=== PATIENT | female | born 1960 | race Caucasian/White ===

== ENCOUNTER → 2019-07-11 10:45 | Outpatient (CLI) | payer OTHER, SELFPAY ==
--- NOTE | ~2019-07-11 | MM_ITS ---
EXAMINATION: MM screening [facility] w [facility] HISTORY: Screening mammogram, family history of breast cancer in her mother. TECHNIQUE: Craniocaudal and mediolateral oblique 3-D tomosynthesis images were obtained and synthetic 2-D images were generated. CAD analysis was submitted and interpreted. COMPARISON: 05/08/2018, 04/23/2017, 04/15/2017 BREAST PARENCHYMAL COMPOSITION: There are scattered areas of fibroglandular density. FINDINGS: There is no evidence of suspicious mass, calcification, or architectural distortion to sugg est malignancy in either breast. There has been no suspicious interval change. IMPRESSION: 1. No mammographic evidence of malignancy. 2. Recommend routine screening mammography in one year. BI-RADS Category 1: Negative Reviewed, dictated and finalized at location A.
== END ==
PROVIDERS: PCP Obstetrics & Gynecology; Visit Provider Obstetrics & Gynecology
DX: Z12.31 Encounter for screening mammogram for malignant neoplasm of breast (principal)
CPT/HCPCS: 77063; 77067

== ENCOUNTER → 2020-11-15 16:50 | Outpatient (CLI) | payer OTHER, SELFPAY ==
--- NOTE | ~2020-11-15 | MM_ITS ---
EXAMINATION: MM screening [facility] w [facility] HISTORY: Screening mammogram, family history of breast cancer in her mother. TECHNIQUE: Craniocaudal and mediolateral oblique 3-D tomosynthesis images were obtained and synthetic 2-D images were generated. CAD analysis was submitted and interpreted. COMPARISON: 07/11/2019, 05/08/2018, 04/23/2017, 04/15/2017 BREAST PARENCHYMAL COMPOSITION: There are scattered areas of fibroglandular density. FINDINGS: Focal asymmetry in the upper right breast has an appearance similar to prior mammograms. Th ere is no evidence of suspicious mass, calcification, or architectural distortion to suggest malignan cy in either breast. There has been no suspicious interval change. IMPRESSION: 1. No mammographic evidence of malignancy. 2. Recommend routine screening mammography in one year. BI-RADS Category 2: Benign finding(s). Reviewed, dictated and finalized at location A.
== END ==
PROVIDERS: Visit Provider Obstetrics & Gynecology
DX: Z12.31 Encounter for screening mammogram for malignant neoplasm of breast (principal)
CPT/HCPCS: 77063; 77067

== ENCOUNTER → 2022-03-23 14:50 | Outpatient (CLI) | payer OTHER, SELFPAY ==
--- NOTE | ~2022-03-23 | MM_ITS ---
EXAMINATION: MM screening [facility] BI w galina HISTORY: Screening TECHNIQUE: Craniocaudal and mediolateral oblique 3-D tomosynthesis images were obtained and synthetic 2-D images were generated. CAD analysis was submitted and interpreted. COMPARISON: Comparison to multiple prior studies sequentially, with oldest reviewed study dated 03/06. BREAST PARENCHYMAL COMPOSITION: There are scattered areas of fibroglandular density. FINDINGS: There is no evidence of suspicious mass, calcification, or architectural distortion to sugg est malignancy in either breast. There has been no suspicious interval change. IMPRESSION: 1. No mammographic evidence of malignancy. 2. Recommend routine screening mammography in one year. BI-RADS Category 1: Negative Reviewed, dictated and finalized at location A. S RECRUITMENT SPECIALIST
== END ==
PROVIDERS: PCP Internal Medicine; Visit Provider Obstetrics & Gynecology
DX: Z12.31 Encounter for screening mammogram for malignant neoplasm of breast (principal)
CPT/HCPCS: 77063; 77067

== ENCOUNTER 2023-03-25 11:51 | Day surgery (SDC) | payer OTHER, SELFPAY ==
[2023-03-06 13:57] VITALS: BMI 30.2
--- NOTE | 2023-03-25 12:21 | WPDANESEPPF ---
Anes - Initial Pre Proc Eval Procedure: Operation Date: 03/25/23 13:30 Proposed Procedures p Screening Colonoscopy - Luis Dozier MD Date/Time: 03/25/23 12:21 Surgeon: Luis Dozier MD Pre Op Diagnosis: Z12.11 Screening for neoplasm of colon Patient Data Age: 62 Gender: F Height: 1.55 m Weight: 72.7 kg Allergies Allergy/AdvReac Type Severity Reaction Status Date / Time moxifloxacin Allergy Severe LIPS Verified 03/25/23 12:09 SWELLING amoxicillin Allergy Unknown Lips Verified 03/25/23 12:09 swelling doxycycline Allergy Unknown Lips Verified 03/25/23 12:09 swelling erythromycin base Allergy Unknown lips Verified 03/25/23 12:09 swelling Penicillins Allergy Unknown Anaphylaxis Verified 03/25/23 12:09 Home Medications Medication Instructions Recorded Confirmed Type hydrocortisone 2.5 % topical cream 1 applic RECTAL QHS PRN 02/11/23 03/25/23 Rx with perineal applicator hemorrhoids #30 grams (Proctosol HC) Patient hx anesthesia problems: none Family hx anesthesia problems: none Results Review: All pre-operative results and documents have been reviewed as part of the pre-operative evaluation. [facility] Past Medical History Medical History Cholecystectomy planned 2007 H/O fracture Hemorrhoids Hyperlipidemia Surgical History Surgical History H/O section 1992 H/O: hysterectomy 2001 Family History Family History Father Malignant neoplasm of prostate Family history of malignant neoplasm of bone Mother Family history of heart disease in male family member before age 55 FH: bariatric surgery Social History Social History Smoking status: Former smoker Smoking end date: 07/29/21 Alcohol intake: current Alcohol use details: very rarely Substance use: never Substance use type: does not use Anes - Eval Final PreProcedure Day of Procedure 03/25/23 12:21 Patient weight: obese Heart: regular rate and rhythm Lungs: clear to auscultation Airway: Mallampati scale class II Neurological: alert and oriented Last oral intake: >/= 8 hours ASA classification: II Emergent: no Anesthetic plan: proceed Anesthesia type and monitoring: general GIVS and standard monitoring Results Review: All pre-operative results and documents have been reviewed as part of the pre-operative evaluation. Informed Consent: The patient's anesthetic plan and its attendant risks and benefits were discussed with the patient/family/POA. Questions were solicited and answers provided to the satisfaction of the patient/family/POA.
[2023-03-25 12:25] VITALS: BP 131/78; PULSE 62; RESP 16; TEMP 36.8; O2SAT 100; BMI 31.2
--- NOTE | 2023-03-25 12:27 | PM.HPGS ---
History of Present Illness History of Present Illness Consent: Risks, benefits, and alternatives have been discussed and questions answered. Patient agrees to proceed with procedure. Chief complaint: Z12.11 Screening for neoplasm of colon Narrative: Cindi Lynn is a 62 year old female Presents for screening colonoscopy. Patient has current weight appetite and bowel is normal. Patient has had no bleeding. Family history is noncontributory. Previous exam 11 years ago was unremarkable. Review of Systems Review of Systems: Review of systems is noncontributory. [facility] Past Medical History Medical History Cholecystectomy planned 2007 H/O fracture Hemorrhoids Hyperlipidemia Surgical History Surgical History H/O section 1992 H/O: hysterectomy 2001 Family History Family History Father Malignant neoplasm of prostate Family history of malignant neoplasm of bone Mother Family history of heart disease in male family member before age 55 FH: bariatric surgery Social History Social History Smoking status: Former smoker Smoking end date: 07/29/21 Alcohol intake: current Alcohol use details: very rarely Substance use: never Substance use type: does not use Meds Home Medications and Allergies Home Medications Medication Instructions Recorded Confirmed Type hydrocortisone 2.5 % topical cream 1 applic RECTAL QHS PRN 02/11/23 03/25/23 Rx with perineal applicator hemorrhoids #30 grams (Proctosol HC) Allergies Allergy/AdvReac Type Severity Reaction Status Date / Time moxifloxacin Allergy Severe LIPS Verified 03/25/23 12:09 SWELLING amoxicillin Allergy Unknown Lips Verified 03/25/23 12:09 swelling doxycycline Allergy Unknown Lips Verified 03/25/23 12:09 swelling erythromycin base Allergy Unknown lips Verified 03/25/23 12:09 swelling Penicillins Allergy Unknown Anaphylaxis Verified 03/25/23 12:09 Vital Signs Vital Signs - 24 hr 03/25/23 12:25 Temperature 98.3 F Pulse Rate 62 Respiratory Rate 16 Blood Pressure 131/78 Pulse Oximetry 100 Oxygen Delivery Room Air Exam Narrative: Physical exam reveals patient to be alert. Signs stable. HEENT exam is unremarkable. Patient is anicteric. Lungs are clear to auscultation and percussion. Heart is without murmur or extra sounds. Abdomen bowel sounds are present soft nontender with no organomegaly. Digital external rectal exam is normal. Assessment and Plan Assessment and plan (1) Screening for colon cancer: Code(s): Z12.11 - Encounter for screening for malignant neoplasm of colon Status: Acute Assessment and Plan: Patient presents today for neoplasia screening colonoscopy.
[2023-03-25] MEDS: LACTATED RINGERS 1,000 ML 150 ML IV CONT (12:30)
[2023-03-25 12:51] VITALS: BP 96/62; PULSE 82; RESP 14; O2SAT 100
[2023-03-25 13:01] VITALS: BP 107/58; PULSE 71; RESP 14; O2SAT 100
--- NOTE | 2023-03-25 13:06 | WPDANESPN ---
Anes - Prog Note Post-Op Date/Time: 03/25/23 13:06 Cardiovascular status: normal Respiratory status: normal Airway patency: baseline Mental status: baseline Post-Op hydration status: normal Vital Signs: Last Vital Signs Temp 36.8 C 03/25/23 12:25 Pulse 71 03/25/23 13:01 Resp 14 03/25/23 13:01 BP 107/58 L 03/25/23 13:01 Pulse Ox 100 03/25/23 13:01 O2 Del Method Room Air 03/25/23 13:01 Pain Score (VAS): 0/10 I/O: Intake & Output 03/24/23 03/25/23 03/25/23 23:59 07:59 15:59 Intake Total 100 Balance 100 Patient Feedback: Patient satisfied with anesthetic care.
[2023-03-25 13:11] VITALS: BP 114/65; PULSE 61; RESP 16; O2SAT 99
== END 2023-03-25 13:25 | disposition home or self-care (01) ==
PROVIDERS: PCP Internal Medicine; Visit Provider Internal Medicine Gastroenterology
PROC: 0DJD8ZZ Inspection of Lower Intestinal Tract, Via Natural or Artificial Opening Endoscopic (ICD-10-PCS; CPT 45378; principal; 2023-03-25 13:30)
DX: Z12.11 Encounter for screening for malignant neoplasm of colon (principal); D12.5 Benign neoplasm of sigmoid colon; K64.8 Other hemorrhoids
CPT/HCPCS: 45385

== ENCOUNTER 2023-03-25 12:53 | Outpatient (NON) | payer OTHER, SELFPAY | END 2023-03-25 12:54 | disposition home or self-care (01) | PROVIDERS: PCP Internal Medicine; Visit Provider Internal Medicine Gastroenterology | DX: Z12.31 Encounter for screening mammogram for malignant neoplasm of breast (principal) | CPT/HCPCS: 88305 ==

== ENCOUNTER → 2023-06-03 14:58 | Outpatient (CLI) | payer OTHER, SELFPAY ==
--- NOTE | ~2023-06-03 | MM_ITS ---
EXAMINATION: MM screening [facility] w [facility] HISTORY: Screening TECHNIQUE: Craniocaudal and mediolateral oblique 3-D tomosynthesis images were obtained and synthetic 2-D images were generated. CAD analysis was submitted and interpreted. COMPARISON: 04/15/2017 BREAST PARENCHYMAL COMPOSITION: The breasts are almost entirely fatty. FINDINGS: There is no evidence of suspicious mass, calcification, or architectural distortion to sugg est malignancy in either breast. There has been no suspicious interval change. IMPRESSION: 1. No mammographic evidence of malignancy. 2. Recommend routine screening mammography in one year. BI-RADS Category 1: Negative Reviewed, dictated and finalized at location A. 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
== END ==
PROVIDERS: PCP Obstetrics & Gynecology; Visit Provider Obstetrics & Gynecology
DX: Z12.31 Encounter for screening mammogram for malignant neoplasm of breast (principal)
CPT/HCPCS: 77063; 77067

== ENCOUNTER 2023-08-29 00:52 | Day surgery (SDC) | payer OTHER, SELFPAY ==
[2023-08-26 13:24] VITALS: BMI 32.5
--- NOTE | 2023-08-26 13:54 | PC.NURSE ---
Report to the Outpatient Waiting Room, entrance under the green pavilion located off [facility], at time _12:00AM on _08/29/23. Planned Procedure Time: _14:00PM . Time changes happen often and if your time is changed the preop area will call you the afternoon before. - You and your visitor will be asked to self-screen and do not enter if you have any COVID symptoms. - A mask is optional within the hospital at this time. Patients may have clear liquids (water, carbonated beverages, clear teas, apple juice) until 3 hours prior to surgery (11:00AM) with a maximum of 20 ounces. - Patient may have a clear liquid diet the day before surgery. No food from midnight until time of surgery Take the following medications with a SIP of water the morning of surgery: __NONE-SEE BELOW FOR BOWEL PREP INSTRUCTIONS DO NOT STOP ANY OF YOUR OTHER PRESCRIPTION MEDICATIONS PRIOR TO SURGERY ?EXCEPT THE FOLLOWING Medications to discontinue per physician N/A Date to take last dose___N/A Please no make-up, nail thai, hairspray, perfume, deodorant, or body powder the day of surgery. No jewelry (including any body piercings) or valuables the day of surgery, leave them at home. Please take a shower or bath the night before, or the morning of, surgery with an antibacterial soap. Wear comfortable, loose fitting clothing. - Jewelry must be removed prior to entering the operating room. Rings and piercings that are not removed may be cut off. - The hospital will not accept responsibility for valuables. - Please leave all valuables, including medications, at home the day of surgery. If you are going home after surgery, a licensed commercial driver's license driver must drive you home. - NO public transportation without another adult if you receive anesthesia. - We recommend that an adult stay with you for 24 hours following discharge. - We also recommend that you do not drive, make important decision, drink alcoholic beverages, or take any drugs that were not prescribed by your health care provider for at least 24 hours after your discharge time. PERFORM A FLEETS ENEMA THE NIGHT BEFORE AND THE MORNING OF YOUR SURGERY IF NO RECTAL PAIN. TAKE 2 5MG DULCOLAX TABS FOR TWO NIGHTS ( & SAT) PRIOR TO SURGERY Follow any additional instructions given to you from your surgeon. If you or anyone in your household have experienced Covid symptoms in the past week, please notify your surgeon or the nurse liaison at the phone number below for possible testing. Telephone instructions given to _IMELDA and asked if any additional questions and then verbalized understanding. Patient advised to call surgeon office or pre surgery nurse liaison [phone] if any additional questions.
--- NOTE | 2023-08-26 14:40 | PM.SD2 ---
Same Day Admit/Disch: HPI History of Present Illness Chief complaint: Rectal itching, pain, bleeding Narrative: Cindi Lynn is a 63 year old female who has had rectal problems for at least 8 months. She has a history of a thrombosed external hemorrhoid which was excised about 20 years ago. She was seen in the office and found to have a posterior midline anal fissure as well as several external hemorrhoids. No prolapsed internal hemorrhoids were noted. She had a colonoscopy last March which showed a tubular adenoma of the sigmoid colon and was removed. Some medium-sized internal hemorrhoids that were uncomplicated were also noted. After discussion in the office, she is taken to surgery now for rectal exam under anesthesia, lateral internal sphincterotomy, and and possibly hemorrhoidectomy. [facility] Past Medical History Medical History Cholecystectomy planned 2007 H/O fracture Hemorrhoids Hyperlipidemia Surgical History Surgical History H/O section 1992 H/O: hysterectomy 2001 Hx of cholecystectomy Family History Family History Father Malignant neoplasm of prostate Family history of malignant neoplasm of bone Mother Family history of heart disease in male family member before age 55 FH: bariatric surgery Breast cancer Hypertension Social History Social History Social History: Years smoked: 35 Smoking status: Former smoker Tobacco type: cigarettes Smoking end date: 05/06/21 Alcohol intake: current Alcohol use details: very rarely Substance use: never Substance use type: does not use Last use: 0.5 Lack of Transportation: No Lack of Food: Never True Current Housing: I Have Housing Concerned About Future Housing: No Difficulty Paying Gas/Electric Bills: No Difficulty Paying for Meds: No Currently Unemployed: No Education: High School Diploma/GED Difficulty w/ Childcare or Family Care: No Living arrangements: with family Occupation/Education: occupation 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 [employer] Spiritual care concerns: No Same Day Admit/Disch: Med Pre-admit Medications Home Medications Medication Instructions Recorded Confirmed Type ketorolac 10 mg tablet 10 mg PO Q6H 4 days #16 tabs 08/29/23 Rx oxycodone-acetaminophen 5 mg-325 0.5 - 1 tablet PO Q6H PRN pain #10 08/29/23 Rx mg tablet tabs Review of Systems Review of Systems All systems reviewed & are unremarkable except as noted in HPI and below (HPI and those items noted below) Constitutional Constitutional: Denies chills and Denies fever(s) Cardiovascular Cardiovascular: Denies chest pain, Denies diaphoresis, Denies dyspnea and Denies paroxysmal nocturnal dyspnea Respiratory Respiratory: Denies chest congestion, Denies cough and Denies dyspnea Integumentary/Breasts Skin/Breast: Denies lesions and Denies rash Exam Const: General: comfortable, no acute distress, alert and awake HENMT: Head: normocephalic and atraumatic Mouth: Yes Normal oral and palatal mucosa present Eyes: Conjunctivae: conjunctivae normal Pupils: Equal, round and reactive pupils present EOM: EOMs intact bilaterally Neck: Neck: normal visual inspection, no lymphadenopathy and nontender Resp: Effort & Inspection: normal respiratory effort Auscultation: clear to auscultation bilaterally Cardio: Rate: regular rate Rhythm: regular rhythm Heart sounds: no gallops, no murmurs and no rubs GI: Inspection: non-distended GI Palp: Yes Soft to palpation, No Tenderness to palpation present (GI), No Hepatomegaly present and No Splenomegaly present Rectal Exam: abnormal sphincter tone increased (With tenderness especially posterior midline, could not do much of a
[2023-08-29] VITALS (7 sets, daily range): BP systolic 107–129; BP diastolic 49–86; PULSE 65–93; RESP 14–20; TEMP 36.2–36.7; O2SAT 99–100
--- NOTE | 2023-08-29 10:20 | WPDANESEPPF ---
Anes - Initial Pre Proc Eval Procedure: Operation Date: 08/29/23 12:00 Proposed Procedures p Rectal Examination Under Anesthesia with Anal Sphincterotomy, Possible Hemorrhoidectomy - Byron Pan MD Date/Time: 08/29/23 10:20 Surgeon: Byron Pan MD Pre Op Diagnosis: Rectal itching, pain, bleeding Patient Data Age: 63 Gender: F Height: 1.55 m Weight: 78 kg Allergies Allergy/AdvReac Type Severity Reaction Status Date / Time moxifloxacin Allergy Severe LIPS Verified 08/26/23 14:05 SWELLING amoxicillin Allergy Unknown Lips Verified 08/26/23 14:05 swelling doxycycline Allergy Unknown Lips Verified 08/26/23 14:05 swelling erythromycin base Allergy Unknown lips Verified 08/26/23 14:05 swelling Penicillins Allergy Unknown Anaphylaxis Verified 08/26/23 14:05 Home Medications Medication Instructions Recorded Confirmed Type No Home Medications 07/12/23 08/26/23 History Patient hx anesthesia problems: none Family hx anesthesia problems: none Results Review: All pre-operative results and documents have been reviewed as part of the pre-operative evaluation. [facility] Past Medical History Medical History Cholecystectomy planned 2007 H/O fracture Hemorrhoids Hyperlipidemia Surgical History Surgical History H/O section 1992 H/O: hysterectomy 2001 Hx of cholecystectomy Family History Family History Father Malignant neoplasm of prostate Family history of malignant neoplasm of bone Mother Family history of heart disease in male family member before age 55 FH: bariatric surgery Breast cancer Hypertension Social History Social History Social History: Years smoked: 35 Smoking status: Former smoker Tobacco type: cigarettes Smoking end date: 05/06/21 Alcohol intake: current Alcohol use details: very rarely Substance use: never Substance use type: does not use Last use: 0.5 Lack of Transportation: No Lack of Food: Never True Current Housing: I Have Housing Concerned About Future Housing: No Difficulty Paying Gas/Electric Bills: No Difficulty Paying for Meds: No Currently Unemployed: No Education: High School Diploma/GED Difficulty w/ Childcare or Family Care: No Living arrangements: with family Occupation/Education: occupation 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 Spiritual care concerns: No Anes - Eval Final PreProcedure Day of Procedure 08/29/23 10:20 Patient weight: obese Heart: regular rate and rhythm Lungs: clear to auscultation Airway: Mallampati scale class II Neurological: alert and oriented Last oral intake: >/= 8 hours ASA classification: II Emergent: no Anesthetic plan: proceed Anesthesia type and monitoring: general ETT and standard monitoring Results Review: All pre-operative results and documents have been reviewed as part of the pre-operative evaluation. Informed Consent: The patient's anesthetic plan and its attendant risks and benefits were discussed with the patient/family/POA. Questions were solicited and answers provided to the satisfaction of the patient/family/POA.
--- NOTE | 2023-08-29 10:30 | ECG_ITS ---
SEE SCANNED COPY FOR CONFIRMED REPORT MTDD
[2023-08-29] MEDS: ACETAMINOPHEN 500 MG TABLET 1000 MG PO (10:45)
[2023-08-29] MEDS: KETOROLAC 15 MG/ML VIAL (*BKC) IV PUSH (10:45)
[2023-08-29] MEDS: LACTATED RINGERS 1,000 ML 30 ML IV CONT (10:45)
--- NOTE | 2023-08-29 11:18 | WPDHPUPDATE1 ---
History and Physical Update Update Date/Time: 08/29/23 11:18 History and Physical has been reviewed, including an updated exam of the patient. There are NO changes in the patient's condition. Risks, benefits, and alternatives have been discussed and questions answered. Patient agrees to proceed with procedure.
[2023-08-29] MEDS: CLINDAMYCIN 900 MG/D5W 50 ML 900 MG/50 ML PIGGYBACK 50 MG IVPB (11:28)
[2023-08-29] MEDS: BUPIVACAINE/EPINEPHRINE 0.5% 30 ML VIAL 40 ML INFILTRATE (11:54)
--- NOTE | 2023-08-29 12:05 | W.PM.PROC2 ---
Procedure Note - Detailed Date of Procedure 08/29/23 Pre-op Diagnosis Posterior midline anal fissure, external hemorrhoids (anal skin tags) Post-op Diagnosis Same Procedure Performed Rectal exam under anesthesia, left lateral internal sphincterotomy, excision left posterior external hemorrhoid, excision 2 skin tags Surgeon Byron Pan MD Product Safety Compliance Leader [place] Anesthesia General and Local Indications Patient has complaints of rectal itching, rectal pain, and several skin tags which are a hygiene problem. She is taken to surgery at this time for rectal exam under anesthesia and possible hemorrhoidectomy and anal sphincterotomy. In the office it was noted she had a posterior midline anal fissure and tenderness with increased anal sphincter spasm. Just prior to surgery she voiced to me her insistence on removing all the anal skin tags. Findings She had a large posterior midline anal fissure and severe anal sphincter spasm. She had a large left posterior external hemorrhoid which was excised and closed. She had 2 anterior skin tags which were on the right and left side. Each of these was small and was simply excised but not closed. Description of Procedure Patient was taken to surgery and induced into general anesthesia. She was then placed in prone jorge-knife position. The buttocks were taped apart. Prep and drape was carried out. I examined the anal canal and distal rectum with Hill-Bal anoscope. Findings were as above. I then infiltrated local anesthetic using 20 cc deep sub dermis and 20 cc intrasphincteric. We then placed a medium Hill-Bal anoscope in the rectum and exposed the left lateral position. A small incision was made over the lower 1/3 of the internal sphincter muscle. I was able to elevate this portion of sphincter muscle on a curved clamp. I then divided the sphincter muscle with the cautery. There was no bleeding. I was then able to insert and remove the medium Hill-Bal anoscope without difficulty. The largest external hemorrhoid was in the left posterior position. This was excised and sent as a specimen. The wound was closed with running 3-0 chromic suture. She had 2 other small external hemorrhoids or anal skin tags which were on the right and left side near the anterior midline. Each of these were excised but no closure was necessary. They were hemostatic. I then really looked in the anal canal. All looked good with no additional pathology and no signs of bleeding. We then dressed the rectum with Xeroform gauze, fluffs and tape. Promise panties were placed. Patient was returned to a supine position, awakened, and extubated. Sponge needle counts were correct x2. Estimated Blood Loss -5 Drains No Packing No Pathology Yes (Left posterior external hemorrhoid) Complications No immediate complications Condition Stable Disposition PACU [facility] Billing Surgery - Charge Forward: Surgery Billing (Rectal exam under anesthesia, lateral internal sphincterotomy, excision external hemorrhoid, excision 2 anal skin tags.)
== END 2023-08-29 13:30 | disposition home or self-care (01) ==
PROVIDERS: PCP Internal Medicine; Visit Provider Surgery
PROC: (CPT 46230; principal; 2023-08-29 12:00)
DX: K60.2 Anal fissure, unspecified (principal); K62.89 Other specified diseases of anus and rectum; K64.4 Residual hemorrhoidal skin tags; K59.4 Anal spasm; E78.5 Hyperlipidemia, unspecified; E66.9 Obesity, unspecified; Z68.32 Body mass index [BMI] 32.0-32.9, adult; Z98.890 Other specified postprocedural states; Z90.49 Acquired absence of other specified parts of digestive tract; Z87.891 Personal history of nicotine dependence; Z80.42 Family history of malignant neoplasm of prostate; Z80.8 Family history of malignant neoplasm of other organs or systems; Z80.3 Family history of malignant neoplasm of breast; Z82.49 Family history of ischemic heart disease and other diseases of the circulatory system
CPT/HCPCS: 46230; 46999; 88304; 93005; A9270; J1100; J1885; J2250; J2405; J2704; J3010; J7120

== ENCOUNTER 2024-06-05 10:29 | Outpatient (CLI) | payer OTHER, SELFPAY ==
--- NOTE | ~2024-06-05 | MM_ITS ---
EXAMINATION: MM screening [facility] w gal[facility] HISTORY: Screening TECHNIQUE: Craniocaudal and mediolateral oblique 3-D tomosynthesis images were obtained and synthetic 2-D images were generated. CAD analysis was submitted and interpreted. COMPARISON: Comparison to multiple prior studies sequentially, with oldest reviewed study dated 04/05. BREAST PARENCHYMAL COMPOSITION: Not dense: There are scattered areas of fibroglandular density. FINDINGS: There is no evidence of suspicious mass, calcification, or architectural distortion to sugg est malignancy in either breast. There has been no suspicious interval change. IMPRESSION: 1. No mammographic evidence of malignancy. 2. Recommend routine screening mammography in one year. BI-RADS Category 1: Negative Reviewed, dictated and finalized at location A. CH CREDIT COUNSELOR
== END 2024-06-05 10:30 | disposition home or self-care (01) ==
LOC: MICIMG 10:32
PROVIDERS: PCP Nurse Practitioner; Visit Provider Obstetrics & Gynecology
DX: Z12.31 Encounter for screening mammogram for malignant neoplasm of breast (principal)
CPT/HCPCS: 77063; 77067

== ENCOUNTER 2025-03-20 12:17 | Emergency (ER) | payer OTHER, SELFPAY ==
--- NOTE | ~2025-03-20 | CT_ITS ---
EXAMINATION: CT lumbar spine wo con COMPARISON: None HISTORY: low midline back pain, felt pop TECHNIQUE: Axial images were obtained through the spine without IV contrast. Coronal, sagittal reconstruction images were obtained from the axial views. CT scan performed using dose optimization techniques including the following automated exposure control; adjustment of mA and/or kV; use of iterative reconstruction technique. Automatic exposure control was used to reduce radiation dose. Permanent radiation dose record is archived to PACS. FINDINGS: Acute superior endplate fracture of L4 with no retropulsion identified. There are remote compression fractures noted of L5, L3 and L2 with kyphoplasty changes noted of L3 and loss of height most marked involving L2 and L5 with loss of height approximately 90%. Moderate loss of disc height at L2-3, L3-4 and L5-S1 with moderate canal and foraminal stenosis. Soft tissues unremarkable. Impression: Acute superior endplate fracture of L4. No retropulsion Reviewed, dictated and finalized at location P. [employer] Impression: Acute superior endplate fracture of L4. No retropulsion
[2025-03-20 12:17] VITALS: BP 115/67; PULSE 86; RESP 16; TEMP 37.1; O2SAT 100
[2025-03-20] MEDS: HYDROmorphone HCL INJ (*CRX) 1 MG/ML SYR IM (12:43)
--- NOTE | 2025-03-20 12:44 | ED.BACK ---
HPI - Back Pain/Injury General Chief Complaint: Back Pain/Injury Stated Complaint: back pain Time Seen by Provider: 03/20/25 12:20 Source: patient and EMS Mode of arrival: EMS Limitations: no limitations History of Present Illness HPI Narrative: This is a 64-year-old female with history of hyperlipidemia, prior spinal injuries status post cement placement who presents to the ED for back pain. Patient states that she was trying to pull a metal stake out of the ground when she felt a pop in her low back. She had severe pain. She tried taking an oxycodone for this with no relief prompting her to call EMS. Denies numbness, tingling, saddle anesthesia, bowel/bladder incontinence. She has had prior spinal surgery for this in [place] in apparently had some compression fractures at that time. Related Data Home Medications ?Medication ?Instructions ?Recorded ?Confirmed ?Last Taken ?Type cholecalciferol (vitamin D3) 50 50 mcg PO DAILY 03/05/24 09/01/24 Unknown History mcg (2,000 unit) tablet Allergies Allergy/AdvReac Type Severity Reaction Status Date / Time moxifloxacin Allergy Severe LIPS Verified 09/01/24 09:50 SWELLING amoxicillin Allergy Unknown Lips Verified 09/01/24 09:50 swelling doxycycline Allergy Unknown Lips Verified 09/01/24 09:50 swelling erythromycin base Allergy Unknown lips Verified 09/01/24 09:50 swelling Penicillins Allergy Unknown Anaphylaxis Verified 09/01/24 09:50 Review of Systems Review of Systems: Gen.: Denies fevers or chills Eyes: Denies eye pain or visual change ENT: Denies congestion Respiratory: Denies shortness of breath or cough CV: Denies chest pain or palpitations GI: Denies abdominal pain nausea, emesis or diarrhea denies burning, urgency, frequency or hematuria Musculoskeletal: As per HPI Neuro: Denies numbness, tingling, weakness or focal weakness Skin: Denies rash Except as documented, all other systems reviewed and negative PMF Past Medical History Medical History Hyperlipidemia Cholecystectomy planned 2007 H/O fracture Hemorrhoids Surgical History Surgical History History of rectal sphincterotomy Rectal exam under anesthesia, left lateral internal sphincterotomy, excision left posterior external hemorrhoid, excision 2 skin tags 09/01/23 Hx of cholecystectomy H/O section 1992 H/O: hysterectomy 2001 Family History Family History Father Malignant neoplasm of prostate Family history of malignant neoplasm of bone Mother Family history of heart disease in male family member before age 55 FH: bariatric surgery Breast cancer Hypertension Social History Social History Social History: Years smoked: 35 Smoking status: Former smoker Tobacco type: cigarettes Smoking end date: 05/06/21 Alcohol intake: current Alcohol use details: very rarely Substance use: never Substance use type: does not use Last use: 0.5 Lack of Transportation: No Lack of Food: Never True Current Housing: I Have Housing Concerned About Future Housing: No Difficulty Paying Gas/Electric Bills: No Difficulty Paying for Meds: No Currently Unemployed: No Education: High School Diploma/GED Difficulty w/ Childcare or Family Care: No Living arrangements: with family Occupation/Education: occupation Additional occupation/education comments: deputy walter at [employer] Spiritual care concerns: No Exam Narrative: APPEARANCE: No acute distress, nontoxic, resting in bed EYES: EOMI HEENT: Normocephalic, atraumatic, OMM RESPIRATORY: No respiratory distress Clear to auscultation bilaterally with no rhonchi wheezing or rales. CARDIOVASCULAR: Regular rate and rhythm without murmurs rubs or gallops. ABDOMINAL: Soft, nontender, nondistended, no rebound or guarding MUSCULOSKELETAl: Moves all extremities. No clubbing, cyanosis or edema. Tenderness palpation to the midline L2 through L3 without step-offs or deformities. NEURO: Awake and alert. Following commands, speech normal, no focal deficits SKIN:: Warm, dry. No rashes lesions or abrasions PSYCHIATRIC: Normal affect/mood, Course Vital Signs Vital signs: Vital Signs Temperature 98.7 F 03/20/25 12:17 Pulse Rate 86 03/20/25 12:17 Respiratory Rate 16 03/20/25 12:17 Blood Pressure 115/67 03/20/25 12:17 Pulse Oximetry 100 03/20/25 12:17 Oxygen Delivery Room Air 03/20/25 12:17 Temperature 98.7 F 03/20/25 12:17 Pulse Rate 86 03/20/25 12:17 Respiratory Rate 16 03/20/25 12:17 Blood Pressure 115/67 03/20/25 12:17 Pulse Oximetry 100 03/20/25 12:17 Oxygen Delivery Room Air 03/20/25 12:17 MDM - Back Pain/Injury MDM Narrative Medical decision making narrative: 64-year-old female Presenting for back injury. On initial evaluation patient was in mild distress afebrile, hemodynamic stable. Differentials include but are not limited to: Fracture, sprain, strain, contusion Notable exam findings: Tenderness over the midline lower lumbar spine without step-offs or deformities CT L-spine showed an acute superior endplate fracture of L4 with no retropulsion. Patient was given Dilaudid with temporary improvement of her symptoms. She was subsequently given oxycodone with improvement of her symptoms. She was able to ambulate through the department but with pain and did develop some lightheadedness but she had received a fair amount of if you add medications which is likely contributing to this. I did discuss the case with on-call Neurosurgery, Dr. Ornelas, recommend the patient follow-up outpatient and consider back brace in shared decision making with the patient, she was preferring to go home at this time. She will be given a short course of oxycodone. She was advised to follow-up with her PCP in the next week and with Dr. Ornelas office in the next week for re-evaluation. Patient was agreeable to this plan. Given strict return precautions. Medical Records Attestation: I reviewed the patient's medical records. Imaging Data Attestation: I personally reviewed and interpreted this imaging study as follows: Radiologist's impression: Impressions Lumbar Spine CT 03/20/25 14:08 Impression: Acute superior endplate fracture of L4. No retropulsion Discharge Plan Discharge Clinical Impression: Closed lumbar vertebral fracture Qualifiers: Encounter type: initial encounter Lumbar vertebra fracture level: L4 Fracture morphology: other fracture Qualified Code(s): S32.048A - Other fracture of fourth lumbar vertebra, initial encounter for closed fracture Patient Disposition: Home Condition: Stable Instructions: Antibiotic Form, Back Pain (ED) Additional Instructions: You were found to have AA anterior superior endplate fracture of her L4 vertebrae. This will likely not require surgery. You were given a referral to Dr. Ornelas, neurosurgery, follow-up with his office in the next week for re-evaluation. You were given prescriptions for Flexeril, Lidoderm, oxycodone, take these as prescribed. You may also take Tylenol and ibuprofen for the pain. Would recommend getting a back brace from pharmacy. Return to the ED for any new or worsening symptoms. For pain, discomfort or temperature greater than or equal to 100.8 ?F please alternate the following 2 medications as needed. First medication- acetaminophen/Tylenol- 1000mg every 6-8 hours as needed for above indications. Second medication- ibuprofen/Motrin-600mg every 6-8 hours as needed for above indication. You should also be evaluated for possible osteoporosis. Patient Language: [place] Prescriptions: New lidocaine [Lidocan IV] 5 % adhesive patch,medicated 1 patch topical DAILY Qty: 15 0RF Rx Instructions: leave on most painful area for up to 12 hrs tizanidine 4 mg capsule 4 mg PO HS PRN (Reason: muscle spasticity) Qty: 30 0RF ondansetron 4 mg tablet,disintegrating 4 mg PO Q8H PRN (Reason: nausea and vomiting) Qty: 14 0RF oxycodone 5 mg tablet 5 mg PO Q6H PRN (Reason: pain (scale score 7-10)) Qty: 12 0RF No Action cholecalciferol (vitamin D3) 50 mcg (2,000 unit) tablet 50 mcg PO DAILY Zepbound 10 mg/0.5 mL pen injector 10 mg subcut WEEKLY Qty: 2 0RF Follow-up/Referrals: Anmol Ornelas MD [Physician, Neurosurgery] Abhay Burdick DO [Physician, Internal Medicine]
[2025-03-20] MEDS: ONDANSETRON HCL ODT 4 MG TABLET PO ×2 (13:39→15:18)
[2025-03-20] MEDS: oxyCODONE HCL (*CRX) 5 MG TAB IR PO (15:18)
[2025-03-20] MEDS: LIDOCAINE 5% PATCH 1 PATCH TRANSDERM (17:11)
[2025-03-20] MEDS: TIZANIDINE HCL 4 MG TABLET PO (17:11)
== END 2025-03-20 17:12 | disposition home or self-care (01) ==
PROVIDERS: Emergency Provider Student in an Organized Health Care Education/Training Program
DX: S32.048A Other fracture of fourth lumbar vertebra, initial encounter for closed fracture (principal); E78.5 Hyperlipidemia, unspecified; Z90.49 Acquired absence of other specified parts of digestive tract; Z90.710 Acquired absence of both cervix and uterus; Z87.891 Personal history of nicotine dependence; X50.0XXA Overexertion from strenuous movement or load, initial encounter
CPT/HCPCS: 72131; 96372; 99284; A9270; J1171

== ENCOUNTER 2025-04-09 10:37 | Outpatient (CLI) | payer OTHER, SELFPAY ==
--- NOTE | ~2025-04-09 | XR_ITS ---
XR lumbar spine 2-3V Indication: S32.009A - Unspecified fracture of unspecified lumbar armin... Comparison: None Findings: Kyphoplasty changes noted of L3 with loss of height 90%. There is a remote compression fracture of L2 with loss of height 90%. There is a remote compression fracture of T12 and L1 with loss of height 50%. No acute fracture or subluxation. Moderate loss of disc height throughout. Soft tissues unremarkable Impression: No acute abnormality. Reviewed, dictated and finalized at location P. ESS HELPER Impression: No acute abnormality.
== END 2025-04-09 10:38 | disposition home or self-care (01) ==
PROVIDERS: PCP Nurse Practitioner Adult Health; Visit Provider Nurse Practitioner Adult Health
DX: M80.08XA Age-related osteoporosis with current pathological fracture, vertebra(e), initial encounter for fracture (principal); Z98.890 Other specified postprocedural states
CPT/HCPCS: 72100